=== PATIENT | male | born 1985 | race Hispanic/Latino ===

== ENCOUNTER → 2019-07-05 | Outpatient (CLI) | payer OTHER ==
[~2019-07-05] MED LIST: DICYCLOMINE HCL20 MG PO; GADOBENATE DIMEGLUMINE 1 ML IV ONE; LOSARTAN POTASS25 MG PO; PANTOPRAZOLE SO40 MG PO; SODIUM CHLORIDE 0.9% 50ML 50 ML ONE; SUCRALFATE1 GM PO
--- NOTE | 2019-07-05 12:31 | Diagnostic Imaging Report ---
MRI of the abdomen, with and without contrast, 07/05/2019. History: Liver metastases. Comparison: None available. Technique: Multiplanar, multisequence imaging of the abdomen was performed pre- and post-IV administration of 20 cc of gadolinium. Dynamic enhanced images of the liver were included. Discussion: The liver contour and size are normal. There are multiple T1 hypointense T2 mildly hyperintense heterogeneous poorly enhancing lesions throughout the liver. The 2 largest in the right lobe measure 3.4 x 3.4 cm, located adjacent to the gallbladder, and 3.6 x 3.8 cm, located posteriorly. 3 additional lesions are present in the right lobe measuring less than 2 cm. A 3.2 x 3.9 cm lesion is present in the caudate lobe. A 1.7 cm lesion is present in the lateral segment of the left hepatic lobe. The hepatic, portal, splenic, and mesenteric veins are patent. The portal vein is normal in size measuring 1.3 cm in diameter. There is no evidence of ascites. Simple cysts are noted within both kidneys, the largest on the left measuring 3.3 cm. The gallbladder, spleen, pancreas, and adrenal glands are normal in appearance. The visualized loops of bowel and osseous structures are normal. There is no evidence of adenopathy. IMPRESSION: 1. Multiple poorly enhancing hepatic masses consistent with metastatic disease. 2. Bilateral simple renal cysts. Signed by: Joe Owusu on 07/05/2019 12:27 PM
== END ==
LOC: MRI 10:36
PROVIDERS: ATTEND Internal Medicine Gastroenterology
DX: C78.7 Secondary malignant neoplasm of liver and intrahepatic bile duct (principal); N28.1 Cyst of kidney, acquired
CPT/HCPCS: 74183; A9577

== ENCOUNTER → 2019-07-06 | Day surgery (SDC) | payer OTHER ==
[~2019-07-06] MED LIST changes: +FENTANYL CITRATE/PF 100MCG/2 ML INJ ONE; -GADOBENATE DIMEGLUMINE 1 ML IV ONE; +MIDAZOLAM HCL 2 MG/2 ML VIAL ONE; +PROPOFOL IV EMULSION 10 MG/ML 50 ML VIAL ONE; -SODIUM CHLORIDE 0.9% 50ML 50 ML ONE
--- OUTSIDE RECORDS SUMMARY | 2019-07-06 06:35 | XMS REPORT ---
[facility] Address Unknown Phone Unavailable Care Team Providers Care Can Technician Name Role Phone LALO CORONEL Unavailable Unavailable Problems This patient has no known problems. Allergies, Adverse Reactions, Alerts This patient has no known allergies or adverse reactions. Medications This patient has no known medications. Results Test Description Test Time Test Comments Text Results Atomic Results Result Comments MRI ABDOMEN WOW 2019-07-05 12:16:00 [place] [address] Patient Name: BOY BOUCHER MR #: [id number] : 1985 Age/Sex: 33/M Req #: [id number] Adm Physician: Ordered by: LALO CORONEL MD Report #: [id number] Location: MRI Room/Bed: Procedure: [id number] MRI/MRI ABDOMEN WOW Exam Date: Exam Time: REPORT STATUS: Signed MRI of the abdomen, with and without contrast, 07/05/2019. History: Liver metastases. Comparison: None available. Technique: Multiplanar, multisequence imaging of the abdomen was performed pre- and post- IV administration of 20 cc of gadolinium. Dynamic enhanced images of the liver were included. Discussion: The liver contour and size are normal. There are multiple T1 hypointense T2 mildly hyperintense heterogeneous poorly enhancing lesions throughout the liver. The 2 largest in the right lobe measure 3.4 x 3.4 cm, located adjacent to the gallbladder, and 3.6 x 3.8 cm, located posteriorly. 3 additional lesions are present in the right lobe measuring less than 2 cm. A 3.2 x 3.9 cm lesion is present in the caudate lobe. A 1.7 cm lesion is present in the lateral segment of the left hepatic lobe. The hepatic, portal, splenic, and mesenteric veins are patent. The portal vein is normal in size measuring 1.3 cm in diameter. There is no evidence of ascites. Simple cysts are noted within both kidneys, the largest on the left measuring 3.3 cm. The gallbladder, spleen, pancreas, and adrenal glands are normal in appearance. The visualized loops of bowel and osseous structures are normal. There is no evidence of adenopathy. IMPRESSION: 1. Multiple poorly enhancing hepatic masses consistent with metastatic disease. 2. Bilateral simple renal cysts. Signed by: Huan Owusu on 07/05/2019 12:27 PM Dictated By: HUAN OWUSU MD 1227 Transcribed By: KANDICE on 07/05/19 1227 COPY TO: LALO CORONEL MD
--- OUTSIDE RECORDS SUMMARY | 2019-07-06 06:35 | XMS REPORT | Clinical Summary ---
Author Author [facility] Address Unknown Phone Unavailable Care Team Providers Care Lining Inserter Name Role Phone Asked, No Pcp PCP Unavailable Allergies No Known Allergies Medications End Date Status Medication Sig Dispensed Refills Start Date 07/28/2019 Active dicyclomine (BENTYL) 20 Take 1 tablet 30 tablet 0 06/28/201 mg tablet (20 mg total) 9 by mouth every 6 (six) hours as needed (abd pain) for up to 30 days. 07/28/2019 Active sucralfate (CARAFATE) 100 Take 10 mL (1 1200 mL 0 06/28/201 mg/mL suspension g total) by 9 mouth 4 (four) times a day with meals and nightly for 30 days. 07/28/2019 Active pantoprazole (PROTONIX) Take 1 tablet 30 tablet 0 06/28/201 40 MG EC tablet (40 mg total) 9 by mouth daily for 30 days. Take every morning on an empty stomach 30 minutes before breakfast Active losartan (COZAAR) 25 MG Take 25 mg by 0 tablet mouth daily. Active Problems Not on file Encounters Care Team Description Date Type Specialty Trevon Ortega MD Epigastric pain (Primary Dx) 06/28/2019 Emergency Emergency Medicine after 07/05/2018 Social History Date Tobacco Use Types Packs/Day Years Used Never Smoker Smokeless Tobacco: Never Used Drinks/Week oz/Week Comments Alcohol Use Rare Yes Alcohol Habits Answer Date Recorded How often do you have a drink containing alcohol? Never 06/28/2019 How many drinks containing alcohol do you have on Not asked a typical day when you are drinking? How often do you have six or more drinks on one Not asked occasion? Sex Assigned at Date Recorded Not on file Industry Job Start Date Occupation Not on file Not on file Not on file Travel End Travel History Travel Start No recent travel history available. Last Filed Vital Signs Reading Time Taken Comments Vital Sign 160/94 06/28/2019 12:35 PM CDT Blood Pressure 59 06/28/2019 12:35 PM CDT Pulse 37.2 C (99 F) 06/28/2019 12:35 PM CDT Temperature 19 06/28/2019 12:35 PM CDT Respiratory Rate 100% 06/28/2019 12:35 PM CDT Oxygen Saturation - - Inhaled Oxygen Concentration - - Weight 177.8 cm (5' 10") 06/28/2019 9:20 AM CDT Height - - Body Mass Index Plan of Treatment Care Team Description Date Type Specialty Rolo Gandhi MD [address] [facility] [address] [place] [address] 07/29/2019 Office Visit Gastroenterology Health Maintenance Due Date Last Done Comments INFLUENZA VACCINE 05/09/2019 Procedures Comments Procedure Name Priority Date/Time Associated Diagnosis ECG 12-LEAD STAT 06/28/2019 12:08 PM CDT XR ABDOMEN ACUTE INC STAT 06/28/2019 CHEST 10:53 AM CDT URINE CULTURE STAT 06/28/2019 9:51 AM CDT ESTIMATED GFR STAT 06/28/2019 9:42 AM CDT LIPASE LEVEL STAT 06/28/2019 9:42 AM CDT COMPREHENSIVE METABOLIC STAT 06/28/2019 PANEL 9:42 AM CDT HC COMPLETE BLD COUNT STAT 06/28/2019 W/AUTO DIFF 9:42 AM CDT URINALYSIS SCREEN AND STAT 06/28/2019 MICROSCOPY, WITH REFLEX 9:26 AM CDT TO CULTURE after 07/05/2018 Results * ECG 12 lead (06/28/2019 12:08 PM CDT) Ventricular 61 [facility] rate Atrial rate 61 [facility] WI interval 120 [facility] QRSD interval 88 [facility] QT interval 426 [facility] QTC interval 428 [facility] P axis 1 43 [facility] QRS axis 1 34 [facility] T wave axis 55 [facility] EKG impression Normal sinus rhythm-Normal [facility] MUSE ECG-No previous ECGs available- Specimen Narrative Performed At Performing Organization Address City/[facility]/Zipcode Phone Number [facility] MUSE [address] [place] [address] * XR Abdomen Acute Inc Chest (06/28/2019 10:53 AM CDT) Specimen Narrative Performed At [facility] Reason for examination:epigastric painrefluxr o hernia FINDINGS: The cardiac silhouette is normal in size. The pulmonary vasculature is within normal limits. The lung zones have no focal area of consolidation. There is no pleural effusion or pneumothorax. Flat and upright views of the abdomen are submitted. There is no evidence of any bowel obstruction nor any dilated loops of bowel. Bowel gas scattered throughout the abdomen. IMPRESSION: 1. There is no acute cardiopulmonary disease. 2. There is no evidence of any pneumoperitoneum or obstruction. Procedure Note Interface, Radiology Results Incoming - 06/28/2019 11:00 AM CDT XR ABDOMEN ACUTE INC CHEST Reason for examination: epigastric pain reflux r o hernia FINDINGS: The cardiac silhouette is normal in size. The pulmonary vasculature is within normal limits. The lung zones have no focal area of consolidation. There is no pleural effusion or pneumothorax. Flat and upright views of the abdomen are submitted. There is no evidence of any bowel obstruction nor any dilated loops of bowel. Bowel gas scattered throughout the abdomen. IMPRESSION: 1. There is no acute cardiopulmonary disease. 2. There is no evidence of any pneumoperitoneum or obstruction. Performing Organization Address City/[facility]/Zipcode Phone Number [facility] [address] [place] [address] * Urine culture (06/28/2019 9:51 AM CDT) Urine culture SEE COMMENTComment: [facility] Bacteriuria screen negative. [facility] Specimen Performing Organization Address City/State/Zipcode Phone Number [facility] OF [address] [place] [address] PATHOLOGY AND GENOMIC MEDICINE [facility] [address] [place] [address] HOSPITAL * Estimated GFR (06/28/2019 9:42 AM CDT) Pathologist [facility] Estimated GFR >=90 mL/min/1.73 m2 [facility] Comment: [facility] G1 >=90 Normal or high G2 60-89Mildly decreased [id number] Mildly to moderately decreased H4a23-28 Moderately to severely decreased G4 15-29Severely decreased G5 <15Kidney failure The eGFR was calculated using the Chronic Kidney Disease Epidemiology Collaboration (CKD-EPI) equation. Interpretation is based on recommendations of the National Kidney Foundation-Kidney Disease Outcomes Quality Initiative (NKF-KDOQI) published in 2014. Specimen Plasma specimen Performing Organization Address City/State/Zipcode Phone Number [facility] [address] [place] [address] PATHOLOGY AND GENOMIC MEDICINE [facility] [address] * CBC with platelet and differential (06/28/2019 9:42 AM CDT) [facility] WBC 8.5 4.2 - 11.0 k/uL [facility] RBC 5.41 4.04 - 5.86 m/uL [facility] HGB 14.1 13.0 - 17.3 g/dL [facility] HCT 44.9 34.0 - 45.0 % [facility] MCV 83.0 80.0 - 98.0 fL [facility] MCH 26.1 (L) 27.0 - 34.0 pg [facility] MCHC 31.4 (L) 31.5 - 36.5 g/dL [facility] RDW - SD 41.2 37.0 - 51.0 fL [facility] MPV 9.8 7.4 - 10.4 fL [facility] Platelet count 249 150 - 400 k/uL [facility] Nucleated RBC 0.00 /100 WBC [facility] Neutrophils 77.8 (H) 36.0 - 66.0 % [facility] Lymphocytes 15.0 (L) 24.0 - 44.0 % [facility] Monocytes 6.3 (H) 0.0 - 6.0 % [facility] Eosinophils 0.2 0.0 - 6.0 % [facility] Basophils 0.5 0.0 - 1.2 % [facility] Immature 0.2 0.0 - 1.0 % [facility] granulocytes [facility] Specimen Blood Performing Organization Address City/[facility] [place] [address] PATHOLOGY AND GENOMIC MEDICINE [address] * Lipase level (06/28/2019 9:42 AM CDT) [facility] Lipase 41 13 - 60 U/L [facility] Specimen Plasma specimen Performing Organization Address City/[facility] [place] [address] PATHOLOGY AND GENOMIC MEDICINE [address] * Comprehensive metabolic panel (06/28/2019 9:42 AM CDT) [facility] Sodium 140 135 - 150 mEq/L [facility] Potassium 3.8 3.5 - 5.0 mEq/L [facility] Chloride 101 98 - 112 mEq/L [facility] CO2 27 24 - 31 mmol/L [facility] Anion gap 12@ANIO 7 - 15 mEq/L [facility] BUN 11 7 - 18 mg/dL [facility] Creatinine 1.00 0.70 - 1.20 mg/dL [facility] Glucose 106 (H) 65 - 100 mg/dL [facility] Calcium 9.5 8.3 - 10.2 mg/dL [facility] Protein 7.9 6.3 - 8.3 g/dL [facility] Albumin 4.7 3.5 - 5.0 g/dL [facility] A/G ratio 1.5 0.7 - 3.8 [facility] Alkaline 85 0 - 129 U/L [facility] phosphatase [facility] AST 13 10 - 50 U/L [facility] ALT 23 5 - 50 U/L [facility] Total bilirubin 0.7 0.2 - 1.2 mg/dL [facility] Specimen Plasma specimen Performing Organization Address City/[facility]ode Phone Number [facility] [address] [place] [address] PATHOLOGY AND GENOMIC MEDICINE [address] [place] [address] HOSPITAL * Urinalysis screen and microscopy, with reflex to culture (06/28/2019 9:26 AM CDT) Specimen site Clean catch [facility] Color, UA Yellow [facility] Appearance, UA Clear [facility] Specific 1.016 1.001 - 1.035 [facility] gravity, UA [facility] pH, UA 7.0 5.0 - 8.5 [facility] Protein, UA Negative Negative [facility] Glucose, UA Negative Negative [facility] Ketones, UA Negative Negative [facility] Bilirubin, UA Negative Negative [facility] Blood, UA Negative Negative [facility] Nitrite, UA Negative Negative [facility] Urobilinogen, Negative <2.0 [facility] Leukocyte Negative Negative [facility] esterase, [facility] WBC, UA None seen 0 - 1 /HPF [facility] RBC, UA 2 0 - 5 /HPF [facility] Bacteria, UA None seen None seen [facility] Yeast, UA None seen [facility] Yeast with None seen [facility] Specimen Urine Performing Organization Address City/[facility]/Zipcode Phone Number [facility] [address] [place] [address] PATHOLOGY AND GENOMIC MEDICINE [facility] [address] [place] [address] HOSPITAL after 07/05/2018 Insurance Type Payer Benefit Subscriber ID Effective Phone Address Plan / Dates Group HMO/[facility] xxxxxxxxx [id number] THCARE resent CHOICE/CHO ICE + Advance Directives For more information, please contact: [phone] 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
[2019-07-06 10:35] VITALS: BP 127/85
--- NOTE | 2019-07-06 17:13 | Operative Report ---
DATE OF PROCEDURE: 07/06/2019 SURGEON: Herberth Lambert MD PROCEDURE: Esophagogastroduodenoscopy with biopsies. INDICATIONS FOR PROCEDURE: Acid reflux, bloating, nausea, history of metastatic liver disease. MEDICATIONS: The patient was done under MAC, please see anesthesiologist's note. PROCEDURE IN DETAIL: With the patient in left lateral decubitus position, a flexible fiberoptic Olympus gastroscope was introduced into the esophagus under direct visualization without any difficulty. There was some patchy erythema noted in distal esophagus. The scope was then advanced with ease into the stomach and mucosa overlying the antrum and the body revealed some patchy erythema and low-grade to moderate edema and biopsies were obtained and sent to stain for H pylori. An approximately 3 mm nodule was noted in the proximal body along the posterior wall that was biopsied. The pylorus was of normal contour and shape, it was intubated with ease and the scope was advanced all the way to the second portion of the duodenum. Biopsies were obtained from the second portion and duodenal bulb to rule out sprue. The scope was then withdrawn back into the stomach and retroflexed and mucosa overlying the fundus and cardia appeared to be within normal limits. The scope was then straightened out, it was subsequently withdrawn. The patient tolerated the procedure well. IMPRESSION: 1. Distal esophagitis. 2. Gastritis, biopsied. Biopsies sent to stain for Helicobacter pylori. 3. Approximately 3 mm nodule proximal body, posterior wall biopsied. 4. Rule out sprue. PLAN: Follow up histology. Continue Protonix 40 mg one p.o. q.a.m. a.c. We will discuss plan and options with the patient. Herberth Lambert MD [facility] /[id number]
== END | disposition home or self-care (01) ==
LOC: OR 06:00
PROVIDERS: ATTEND Internal Medicine Gastroenterology
DX: K21.9 Gastro-esophageal reflux disease without esophagitis (principal); K20.9 Esophagitis, unspecified; K29.70 Gastritis, unspecified, without bleeding; R14.0 Abdominal distension (gaseous); R11.0 Nausea; R10.10 Upper abdominal pain, unspecified; B96.81 Helicobacter pylori [H. pylori] as the cause of diseases classified elsewhere; Z88.8 Allergy status to other drugs, medicaments and biological substances; Z01.810 Encounter for preprocedural cardiovascular examination
CPT/HCPCS: 43239; 93005; J2250; J2704; J3010